=== PATIENT | female | born 1995 | race Two or more races ===

== ENCOUNTER → 2019-03-28 | Outpatient (REF) ==
--- NOTE | 2019-03-28 10:17 | RADIOLOGY IMAGING REPORT ---
[place] [facility] [place] NAME: Ellie Mtz : 1995 MR: [id number] V: [id number] EXAM DATE: ORDERING PHYSICIAN: RENE REINA TECHNOLOGIST: Location: [facility] - [place] Patient: Ellie Mtz : 1995 Visit/Account:[id number] Date of Sevice: 03/28/2019 LIVER HISTORY: HBV COMPARISON: None FINDINGS: Gallbladder: Unremarkable; no stones or sludge. Liver: Negative. Common duct: Normal, 1.9 mm diameter. Pancreas: Partially obscured by bowel, visualized aspects unremarkable. Right kidney: Negative. Upper abdominal aorta and IVC: Patent. Ascites: None visualized. IMPRESSION: Unremarkable right upper quadrant ultrasound Report Dictated By: Dara Brambila MD at 03/28/2019 10:09 AM Report E-Signed By: Dara Brambila MD at 03/28/2019 10:10 AM WSN:[id number]
== END ==
LOC: EDSEX → US 07:50
PROVIDERS: ATTEND Registered Nurse Psychiatric/Mental Health
DX: B19.10 Unspecified viral hepatitis B without hepatic coma (principal)
CPT/HCPCS: 76705